=== PATIENT | male | born 1965 | race Caucasian/White ===

== ENCOUNTER 2017-07-14 20:41 | Emergency (ER) | payer MEDICAID ==
[~2017-07-14] VITALS: Ht 175.3 cm; Wt 74.8 kg
[2017-07-14] MEDS ORDERED: NEOMY/BACITRA/POLYMYXIN B OINT UD PACKET TP ONE (21:30)
--- NOTE | 2017-07-14 22:53 | NUR ---
Patient eloped from facility. ER physician notified.
== END 2017-07-14 22:56 | disposition left against medical advice (07) ==
LOC: ER 20:42
DX: S01.111A Laceration without foreign body of right eyelid and periocular area, initial encounter (principal); R51 Headache; F17.200 Nicotine dependence, unspecified, uncomplicated; W22.8XXA Striking against or struck by other objects, initial encounter; Y93.89 Activity, other specified; Y92.89 Other specified places as the place of occurrence of the external cause; Y99.8 Other external cause status
CPT/HCPCS: 70450; 70480; A4663

== ENCOUNTER 2017-09-08 20:46 | Emergency (ER) | payer SELFPAY ==
[~2017-09-08] VITALS: Ht 175.3 cm; Wt 72.6 kg
--- NOTE | 2017-09-08 21:40 | NUR ---
DANIEL ZHANG AT BEDSIDE FOR MSE.
[2017-09-08] MEDS ORDERED: VANCOMYCIN IV 1,000 MG in IV DEXTROSE 5% 250 ML IV ONE (21:45)
[2017-09-08] MEDS ORDERED: VANCOMYCIN IV 200 ML ONE (22:01)
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
[2017-09-08] MEDS ORDERED: HYDROCODONE/APAP 5-325MG TABLET PO ONE (23:15)
[2017-09-08] MEDS ORDERED: HYDROCODONE/APAP 5-325MG TABLET ONE (23:42)
--- NOTE | 2017-09-09 00:48 | NUR ---
Patient discharged to home in stable conditon. Written and verbal after care instructions given. Patient verbalizes understanding of instructions. Pt ambulated from ER w/ steady gait w/ use of crutches. Denies pain, n/v at this time. Pt took all personal belongings. No distress noted.IV removed, w/ catheter intact. No bleeding noted at site. Pressure applied.
[2017-09-09 00:52] VITALS: BP 150/82
[2017-12-01] MEDS ORDERED: ANTIBIOTICS (03:09)
== END 2017-09-09 00:52 | disposition home or self-care (01) ==
LOC: ER 20:47
DX: L03.115 Cellulitis of right lower limb (principal); F17.210 Nicotine dependence, cigarettes, uncomplicated
CPT/HCPCS: A4663; J3370

== ENCOUNTER 2017-11-23 10:38 | Emergency (ER) | payer SELFPAY ==
[~2017-11-23] VITALS: Ht 175.3 cm; Wt 68.0 kg
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
[2017-11-23] MEDS ORDERED: LET TOPICAL SOLUTION 8 ML UDC TP ONE (11:30)
[2017-11-23] MEDS ORDERED: LIDOCAINE HCL 2% 20 ML VIAL TP ONE (11:30)
[2017-11-23] MEDS ORDERED: SODIUM BICARBONATE 4.2 % (NEUT) 5 ML VIAL TP ONE (11:30)
[2017-11-23] MEDS ORDERED: LET TOPICAL SOLUTION 8 ML UDC ONE (11:32)
[2017-11-23] MEDS ORDERED: NEOMY/BACITRA/POLYMYXIN B OINT UD PACKET TP ONE ×2 (13:15→13:23)
[2017-11-23] MEDS ORDERED: SULFAMETH/TRIMETH 800/160 MG TABLET PO ONE (13:15)
[2017-11-23] MEDS ORDERED: SULFAMETH/TRIMETH 800/160 MG TABLET ONE (13:23)
--- NOTE | 2017-11-23 13:33 | NUR ---
Patient discharged to home in stable conditon. Written and verbal after care instructions given. Patient verbalizes understanding of instructions.
[2017-12-01] MEDS ORDERED: ANTIBIOTICS (03:09)
== END 2017-11-23 13:35 | disposition home or self-care (01) ==
LOC: ER 10:39
DX: M79.5 Residual foreign body in soft tissue (principal); F17.210 Nicotine dependence, cigarettes, uncomplicated; Z59.0 Homelessness; W34.010A Accidental discharge of airgun, initial encounter; Y93.89 Activity, other specified; Y92.89 Other specified places as the place of occurrence of the external cause; Y99.8 Other external cause status
CPT/HCPCS: 73590; 73630; A4663; J3490; J7030

== ENCOUNTER 2021-09-15 03:14 | Emergency (ER) | payer MEDICAID ==
[~2021-09-15] VITALS: Ht 175.3 cm; Wt 72.6 kg
[~2021-09-15 03:14] MED LIST: ANTIBIOTICS
--- NOTE | 2021-09-15 03:23 | NUR ---
pt ambulated to ER. c/o LLE pain. steady gait. no sob. no chest pain. AOx4
--- NOTE | 2021-09-15 03:25 | NUR ---
Dr. Winter at bedside for MSE.
[2021-09-15] MEDS ORDERED: CEFAZOLIN 1 G in IV DEXTROSE 5% 50 ML IV ONE (03:45)
[2021-09-15] MEDS ORDERED: OXYCODONE/APAP 5-325 MG TABLET PO ONE (03:45)
[2021-09-15 03:47] LABS: HEMATOCRIT 39.6 % (36.7-47.1); MEAN CORPUSCULAR HEMOGLOBIN 29.2 uug (23.8-33.4); MEAN CORPUSCULAR VOLUME 85.6 fL (73.0-96.2); PLATELET COUNT (AUTO) 267 K/uL (152-348)
[2021-09-15 03:52] LABS: CREATININE 1.4 mg/dL (0.6-1.3); POTASSIUM 3.6 mmol/L (3.5-5.1)
[2021-09-15] MEDS ORDERED: CEFAZOLIN 1 G VIAL ONE (03:54)
[2021-09-15] MEDS ORDERED: OXYCODONE/APAP 5-325 MG TABLET ONE (03:54)
[2021-09-15] MEDS ORDERED: SULF1TAB48 PO (04:09)
[2021-09-15] MEDS ORDERED: HYDR-3980 PO (04:09)
--- NOTE | 2021-09-15 04:48 | NUR ---
Patient discharged to home in stable condition. Written and verbal after care instructions given. Patient verbalizes understanding of instructions. Stressed follow up or return to ER for worsening s/s. pt ambulated with steady gait. denies pain. steady gait. no SOB. AOx4
[2021-09-15 04:49] VITALS: BP 124/80
== END 2021-09-15 04:50 | disposition home or self-care (01) ==
LOC: ER 03:24
DX: L03.116 Cellulitis of left lower limb (principal); R00.0 Tachycardia, unspecified; F17.210 Nicotine dependence, cigarettes, uncomplicated
CPT/HCPCS: 36415; 80048; 85025; 96365; 99284; J0690; J7060; A4663